=== PATIENT | male | born 1995 ===

== ENCOUNTER 2017-01-20 13:36 | Emergency (ER) | payer SELFPAY ==
[2017-01-20] MEDS ORDERED: Ibuprofen TAB* 600 MG PO ONE (13:41)
--- NOTE | 2017-01-20 13:49 | UC ---
Lower Extremity/Ankle HPI - HPI Summary HPI Summary: Drove geurreroe ochoa over R foot, bleeding, swelling, pain, and nail deformity on R great toe. Denies hx of injury to this toe. Did have R calcaneal fx in past, no sx. - History of Current Complaint Stated Complaint: FOOT INJ (CRUSH) Time Seen by Provider: 01/20/17 13:41 Hx Obtained From: Patient Onset/Duration: Sudden Onset Severity Initially: Moderate Severity Currently: Moderate Aggravating Factor(s): Standing, Ambulation Alleviating Factor(s): Rest Able to Bear Weight: Yes - Allergies/Home Medications Allergies/Adverse Reactions: Allergies Allergy/AdvReac Type Severity Reaction Status Date / Time No Known Allergies Allergy Verified 01/20/17 14:01 PMH/Surg Hx/FS Hx/Imm Hx Endocrine History Of: Denies: Diabetes, Thyroid Disease Cardiovascular History Of: Denies: Cardiac Disorders, Hypertension Respiratory History Of: Reports: Asthma Denies: COPD GI/ History Of: Denies: Ulcer - Surgical History Surgical History: None - Family History Known Family History: Negative: Diabetes, Blood Disorder - Social History Occupation: Employed Full-time Alcohol Use: Occasionally Substance Use Type: None Smoking Status (MU): Never Smoked Tobacco Review of Systems Constitutional: Negative Skin: Other - bleeding, swelling Eyes: Negative ENT: Negative Respiratory: Negative Cardiovascular: Negative Gastrointestinal: Negative Genitourinary: Negative Motor: Negative Neurovascular: Negative Musculoskeletal: Arthralgia Neurological: Negative Psychological: Negative All Other Systems Reviewed And Are Negative: Yes Physical Exam Triage Information Reviewed: Yes Appearance: Well-Appearing, Well-Nourished, Pain Distress - mild Vital Signs Reviewed: Yes Eye Exam: Normal Eyes: Positive: Conjunctiva Clear ENT Exam: Normal ENT: Positive: Normal ENT inspection, Hearing grossly normal, Pharynx normal, TMs normal Dental Exam: Normal Neck exam: Normal Respiratory Exam: Normal Respiratory: Positive: Chest non-tender, Lungs clear, Normal breath sounds, No respiratory distress, No accessory muscle use Cardiovascular Exam: Normal Cardiovascular: Positive: RRR, No Murmur Musculoskeletal: Positive: ROM Intact, Other: - tenderness, bleeding around R great toenail. Proximal edge of R toenail partially avulsed. Neurological Exam: Normal Psychological Exam: Normal Lower Extremity Course/Dx - Differential Dx/Diagnosis Provider Diagnoses: Partial R great toenail avulsion. R great toe distal phalangeal fracture Discharge - Discharge Plan Condition: Stable Disposition: HOME Prescriptions: Cephalexin CAP* [Keflex 500 CAP*] 500 mg PO QID #20 cap Patient Education Materials: Toe Fracture (ED), Nail Avulsion (ED) Referrals: Vandana Healy MD [Medical Doctor] - Additional Instructions: Arrange for follow-up with an orthopedist in about a week.
[2017-01-20 14:01] VITALS: BP 115/64
--- NOTE | 2017-01-20 14:22 | RAD ---
INDICATION: Right great toe injury. TECHNIQUE: 3 views of the right great toe were obtained. FINDINGS: There is diffuse soft tissue swelling present around the distal phalanx of the great toe. On one view there is a faint radiolucent line which extends dense transversely through the midportion of the distal phalanx suggestive of a nondisplaced fracture. Joint spaces appear maintained. IMPRESSION: POSSIBLE NONDISPLACED FRACTURE OF THE DISTAL PHALANX.
== END 2017-01-20 15:04 | disposition home or self-care (01) ==
LOC: UCEAST 13:36
DX: S92.421A Displaced fracture of distal phalanx of right great toe, initial encounter for closed fracture (principal); S91.211A Laceration without foreign body of right great toe with damage to nail, initial encounter; J45.909 Unspecified asthma, uncomplicated; X58.XXXA Exposure to other specified factors, initial encounter; Y92.9 Unspecified place or not applicable; W31.89XA Contact with other specified machinery, initial encounter
CPT/HCPCS: 99213; A9270-GY; G0463

== ENCOUNTER 2018-02-05 13:50 | Emergency (ER) | payer SELFPAY ==
[2018-02-05] MEDS ORDERED: methylPREDNISolone 125 MG* 2 ML VIAL IM ONE (13:59)
[2018-02-05] MEDS ORDERED: EPINEPHrine AMP 1 MG/ML IM ONE (13:59)
[2018-02-05] MEDS ORDERED: Famotidine TAB* 20 MG PO ONE (14:00)
[2018-02-05] MEDS ORDERED: diPHENhydraMINE PO* 50 MG PO ONE (14:00)
[2018-02-05 14:02] VITALS: BP 142/63
[2018-02-05] MEDS ORDERED: EPINEPHRINE 1 MG/ML 1 ML VIAL ONE (14:04)
--- NOTE | 2018-02-05 14:11 | UC ---
Allergic Reaction HPI - HPI Summary HPI Summary: PT WAS EATING LUNCH AT [email or web address] WHEN HE SUDDENLY BECAME SOB AND FELT TINGLY IN HIS FACE AND HANDS. HAS A H/O ANAPHYLAXIS TO SHELLFISH. GOT WORRIED AND CAME DIRECTLY HERE. DENIES FEVER, NAUSEA OR TONGUE/LIP SWELLING. THROAT NOT CLOSING OVER. HERE ACCOMPANIED BY GIRLFRIEND. - History of Current Complaint Stated Complaint: SOB, TINGLING IN FACE Time Seen by Provider: 02/05/18 13:54 Hx Obtained From: Patient Onset/Duration: Sudden Onset, Lasting Minutes, Still Present Severity Initially: Moderate Severity Currently: Moderate Pain Intensity: 0 Pain Scale Used: 0-10 Numeric Aggravating Factor(s): Nothing Alleviating Factor(s): Nothing Associated Signs And Symptoms: Positive: Difficulty Breathing. Negative: Abdominal Pain, Chest Pain, Cough Wheezing, Diaphoresis, Hoarseness, Lightheadedness, Nausea, Rash, Syncope, Throat Tightening, Vomiting - Allergies/Home Medications Allergies/Adverse Reactions: Allergies Allergy/AdvReac Type Severity Reaction Status Date / Time shellfish derived Allergy anaph Verified 02/05/18 14:17 PMH/Surg Hx/FS Hx/Imm Hx Respiratory History: Asthma - Surgical History Surgical History: None - Family History Known Family History: Negative: Diabetes, Blood Disorder - Social History Alcohol Use: Occasionally Substance Use Type: None Smoking Status (MU): Never Smoked Tobacco Review of Systems Constitutional: Negative Skin: Negative Respiratory: Shortness Of Breath Cardiovascular: Negative Gastrointestinal: Negative Neurological: Paresthesia All Other Systems Reviewed And Are Negative: Yes Physical Exam Triage Information Reviewed: Yes Appearance: No Pain Distress, Well-Nourished, Other: - BREATHING HEAVILY Vital Signs: Initial Vital Signs Temp 98.4 F 02/05/18 14:00 Pulse 75 02/05/18 14:00 Resp 18 02/05/18 14:00 BP 142/63 02/05/18 14:00 Pulse Ox 100 02/05/18 14:00 Vital Signs Reviewed: Yes Eyes: Positive: Conjunctiva Clear ENT: Positive: Hearing grossly normal, Pharynx normal, Other - NO TONGUE/LIP EDEMA. Negative: Tonsillar swelling, Tonsillar exudate Neck: Positive: Supple, Nontender, No Lymphadenopathy Respiratory: Positive: Lungs clear, Normal breath sounds, Other: - BREATHING HEAVILY Cardiovascular Exam: Normal Abdomen Description: Positive: Soft Musculoskeletal: Positive: No Edema Neurological: Positive: Alert Psychological: Positive: Age Appropriate Behavior Skin: Negative: rashes Re-Evaluation - Re-Evaluation First Eval Re-Evaluation Time: 14:32 - BREATHING NORMALLY AND TINGLING RESOLVED AFTER SOLUMEDROL, EPINEPHRINE, BENADRYL AND PEPCID. WANTS TO GO HOME Change: Improved Allergic Reaction Course/Dx - Differential Dx/Diagnosis Provider Diagnoses: GENERALIZED ALLERGIC REACTION Discharge - Discharge Plan Condition: Stable Disposition: HOME Prescriptions: EPINEPHrine [Epipen 2-Brayan] 0.3 mg IM ONCE PRN #1 inj PRN Reason: Allergy Symptoms Patient Education Materials: General Allergic Reaction (ED) Referrals: No Primary Care Phys,NOPCP [Primary Care Provider] - Additional Instructions: YOUR SYMPTOMS RESOLVED AFTER 125MG SOLUMEDROL, EPINEPHRINE, BENADRYL AND PEPCID. TAKE OTC ANTIHISTAMINE DAILY (CLARITIN (LORATADINE), ZYRTEC (CETIRIZINE) OR YAYA (FEXOFENADINE) IN THE MORNING, 25-50MG BENADRYL AT NIGHT) FOR THE NEXT FEW DAYS. CALL THE NUMBER BELOW FOR ASSISTANCE IN ESTABLISHING WITH A PCP An additional resource available to assist in finding the appropriate physician for your health care needs is the [facility] ([facility]). You may contact them by calling [phone].
== END 2018-02-05 14:58 | disposition home or self-care (01) ==
LOC: UCEAST 13:50
DX: T78.40XA Allergy, unspecified, initial encounter (principal); X58.XXXA Exposure to other specified factors, initial encounter
CPT/HCPCS: 96372; 99212; A9270-GY; G0463; J0171; J2930

== ENCOUNTER 2018-07-28 11:16 | Emergency (ER) | payer SELFPAY ==
[2018-07-28 11:29] VITALS: BP 97/51
--- NOTE | 2018-07-28 11:42 | UC ---
Skin Complaint HPI - HPI Summary HPI Summary: This patient is a 23 year old M presenting to [facility] [place] accompanied by his girlfriend with a CC of diffuse poison shalonda rash since 07/24/18, but he endorses the exposure was 07/22/18. Pt was weeding an overgrown yard. Pt endorse he used calamine lotion, prednisone (4 days ago: 2 days, 60mg each day that he had left over), and [facility] poison shalonda cream, all with no sx alleviation. He endorses he had sx on his forehead but are resolved, and newer outbreaks of rash on his legs, elbows. He denies SOB, or swelling of his mouth or eyes. Patient did not go to work today. Patient other complaints. Medications medications reviewed this visit. - History of Current Complaint Chief Complaint: UCRash Time Seen by Provider: 07/28/18 11:21 Stated Complaint: RASH Hx Obtained From: Patient Onset/Duration: Gradual Onset, Lasting Days, Still Present Skin Exposure Onset/Duration: Days Ago Timing: Constant Onset Severity: Moderate Current Severity: Moderate Pain Intensity: 5 Pain Scale Used: 0-10 Numeric Location: Face, Hand (Right), Hand (Left), Other - back, LE's Character: Pruritus, Redness Aggravating Factor(s): Nothing Alleviating Factor(s): Nothing Associated Signs & Symptoms: Positive: Rash. Negative: Difficulty Breathing, Fever, Throat Tightening Related History: Possible Reaction to: Environmental Exposure - Poison shalonda - Allergy/Home Medications Allergies/Adverse Reactions: Allergies Allergy/AdvReac Type Severity Reaction Status Date / Time shellfish derived Allergy anaph Verified 07/28/18 11:22 Review of Systems Skin: Rash Is Patient Immunocompromised?: No All Other Systems Reviewed And Are Negative: Yes PMH/Surg Hx/FS Hx/Imm Hx Previously Healthy: Yes - Surgical History Surgical History: None - Family History Known Family History: Positive: Other - Noncontributory Negative: Diabetes, Blood Disorder - Social History Occupation: Employed Full-time Lives: With Family Alcohol Use: Weekly Substance Use Type: Marijuana Smoking Status (MU): Never Smoked Tobacco Physical Exam - Summary Physical Exam Summary: Vital Signs Reviewed: Yes A+Ox3, no distress Eyes: Conjunctiva Clear, ISREAL. EOM intact and full ENT: Hearing grossly normal TM x 2 clear, mmoist, uvula midline, no exudate, no erythema Neck: Positive: Supple Respiratory: Positive: No respiratory distress, No accessory muscle use + CTA throughout no w/r Cardiovascular: RRR nl s1, s2 no m/r CBT <2 sec abd soft + BS nt/nd no guarding, no distension Musculoskeletal Exam: ENRIQUEZ x 4 without difficulty Strength Intact, ROM Intact Neurological: Positive: Alert, + sensation throughout Psychological: Positive: Normal Response To Family Skin: Positive: Pt with patches of dry, scaling skin on slight erythema base between fingers on right hand, right wrist. Pt with dried vesciular lesions on frontal forehead and left anterior chest wall Triage Information Reviewed: Yes Vital Signs: Initial Vital Signs Temp 96.7 F 07/28/18 11:25 Pulse 65 07/28/18 11:25 Resp 16 07/28/18 11:25 BP 97/51 07/28/18 11:25 Pulse Ox 97 07/28/18 11:25 Course/Dx - Course Course Of Treatment: Patient presents following exposure to poison shalonda. Patient with multiple patches consistent with contact dermatitis on his hands chest wall and face. Patient took 2 days with a 60 noticed Prednisol many a leftover but none since. Patient has used [id number] preparations with little relief. We'll prescribe patient a prolonged prednisone taper. Cautioned patient with Benadryl. Avoid heat avoid NSAIDs return precautions. Patient return for note for today. Patient comfortable in agreement with plan. Patient was given urgent Rx does not have insurance coverage for prescriptions. - Diagnoses Provider Diagnoses: contact dermatitis Discharge - Sign-Out/Discharge Documenting (check all that apply): Patient Departure - discharge All imaging exams completed and their final reports reviewed: No Studies - Discharge Plan Condition: Stable Disposition: HOME Prescriptions: diPHENhydraMINE PO* [Benadryl PO 25 MG TAB*] 25 mg PO Q8HR #12 tab predniSONE TAB* [Deltasone 20 MG TAB*] 20 mg PO DAILY #20 tab Patient Education Materials: Poison Shalonda (ED) Forms: *Work Release Referrals: [facility] PHYSICIAN REFERRAL [Outside] No Primary Care Phys,NOPCP [Primary Care Provider] - Additional Instructions: - Take prednisone exactly as prescribed until gone - starting today - Okay to take Benadryl (1 tablets) every 8 hours as needed for itching. This medication may cause drowsiness - do NOT drive, operate machinery or drink alcohol while taking Benadryl. You may also apply benadryl cream to areas that are itchy - this should not cause drowsiness -Avoid getting over heated (hot showers, hot tubs, exercise) for a few days - Try to avoid aspirin, NSAIDs (Motrin, Aleve, Naprosyn) for 2-3 days - Okay to apply cool compresses to the area of injury -Contact your doctor or return here with questions or concerns - Billing Disposition and Condition Condition: STABLE Disposition: Home - Attestation Statements Document Initiated by Holaibe: Yes Documenting Scribe: Marlon Butler Provider For Whom Holaibe is Documenting (Include Credential): Dr. Allyn Smith MD Scribe Attestation: I, Marlon Butler, scribed for Dr. Allyn Smith MD on 07/28/18 at 1146. Scribe Documentation Reviewed: Yes Provider Attestation: The documentation as recorded by the Marlon canchola accurately reflects the service I personally performed and the decisions made by me, Dr. Allyn Smith MD
== END 2018-07-28 11:54 | disposition home or self-care (01) ==
LOC: UCEAST 11:16
DX: L25.5 Unspecified contact dermatitis due to plants, except food (principal); Z91.013 Allergy to seafood
CPT/HCPCS: 99212; G0463